=== PATIENT | female | born 1975 | race Caucasian/White ===

== ENCOUNTER 2018-03-14 16:04 | Emergency (ER) | payer OTHER ==
[2018-03-14 16:08] VITALS: BP 137/105; PULSE 78; RESP 16; TEMP 98.7; O2SAT 99
--- NOTE | 2018-03-14 17:01 | ED PDOC ---
HPI: Trauma/Fall - HPI Time Seen by Provider: 03/14/18 16:12 Chief Complaint (Nursing): Trauma Chief Complaint (Provider): Head Injury History Per: Patient History/Exam Limitations: no limitations Injury Occurred (Timing): Just Before Arrival Additional Complaint(s): 43 year old female presents to the ED via EMS for evaluation of head injury. Patient reports half of a broken brick fell approximately 15-20 feet from the side of a building in the [facility], striking her head just prior to arrival. Patient notes she did not lose consciousness, but sustained cuts to the top of her head. Her only current complaint is a global headache, described as pressure. Otherwise, denies fever, dizziness, chest pain, abdominal pain, extremity pain, changes in vision, nausea, vomiting, and anticoagulant use. Tetanus up to date PMD: Dr. Ackerman Past Medical History Reviewed: Historical Data, Nursing Documentation, Vital Signs Vital Signs: Last Vital Signs Temp 98.7 F 03/14/18 16:06 Pulse 78 03/14/18 16:06 Resp 16 03/14/18 16:06 BP 137/105 H 03/14/18 16:06 Pulse Ox 99 03/14/18 16:06 - Medical History Other PMH: ADHD - Surgical History Surgical History: (x2) - Family History Family History: States: Unknown Family Hx - Living Arrangements Living Arrangements: With Family - Social History Current smoker - smoking cessation education provided: No Alcohol: Social Drugs: Denies - Home Medications Home Medications: Ambulatory Orders Medication Instructions Recorded Acetaminophen [Acetaminophen 8 650 mg PO Q8 PRN #21 tablet.er 03/14/18 Hour] - Allergies Allergies/Adverse Reactions: Allergies Allergy/AdvReac Type Severity Reaction Status Date / Time No Known Allergies Allergy Verified 03/14/18 16:05 Review of Systems ROS Statement: Except As Marked, All Systems Reviewed And Found Negative Constitutional: Positive for: Other (head injury) Eyes: Negative for: Vision Change Gastrointestinal: Negative for: Nausea, Vomiting Neurological: Positive for: Headache. Negative for: Dizziness, Other (loss of consciousness) Physical Exam - Reviewed Nursing Documentation Reviewed: Yes Vital Signs Reviewed: Yes - Physical Exam Comments: GENERAL APPEARANCE: Patient is awake, alert, oriented x 3, in no acute distress. Resting comfortably. SKIN: Warm, dry; (-) cyanosis. HEAD: (+) left parietal scalp 3cm x 3cm hematoma with overlying superficial abrasions, (-) active bleeding, (+) tenderness, (+) faint ecchymosis, with no palpable bony defect. EYES: (-) conjunctival pallor, (-) scleral icterus, (-) nystagmus. ENMT: Mucous membranes moist. Nose: (-) tenderness. Pharynx clear. Airway patent: (-) stridor. Full ROM of mandible without pain. NECK: Supple, FROM (-) paracervical tenderness, (-) vertebral tenderness, (-) lymphadenopathy. CHEST AND RESPIRATORY: (-) rales, (-) rhonchi, (-) wheezes; breath sounds equal bilaterally. Respirations even and nonlabored. HEART AND CARDIOVASCULAR: (-) irregularity BACK: (-) midline tenderness. EXTREMITIES: (-) deformity NEURO AND PSYCH: GCS=15. Mental status as above. Has full memory of episode; clam sorter: Pupils equal & reactive . EOMI and painless. (-) facial asymmetry. Tongue and uvula midline. Strength 5/5 in all extremities. No gross sensory deficits. Gait: steady. Speech: clear. Cerebellar test intact. - Laboratory Results Urine POC: Negative - ECG O2 Sat by Pulse Oximetry: 99 (RA) Pulse Ox Interpretation: Normal Medical Decision Making Medical Decision Making: Initial Impression: closed head injury Time: 1644 Initial Plan: --CT Head without contrast --U-preg --Tylenol 650mg PO --Re-evaluation 1654 U-preg: negative 1810 CT radiology report follows FINDINGS: BRAIN No acute intraparenchymal hemorrhage. No mass lesion. No abnormal enhancement. No CT evidence for acute territorial infarct. No midline shift or extra-axial collections. VENTRICLES: No hydrocephalus. ORBITS: The orbits are unremarkable. SINUSES AND MASTOIDS: The paranasal sinuses and mastoid air cells are clear. BONES: No fracture. IMPRESSION: No acute intracranial abnormality. On re-evaluation, patient reports improvement of symptoms. On exam, patient remains AAOx3, in no acute distress. Lungs clear to auscultation, cardiac RRR, repeat neuro exam shows no focal findings. Vitals stable. Lab/Diagnostic results d/w the patient in great detail. Diagnosis of closed head injury, headache d/w the patient. Based on history, exam and diagnostic results, plan will be for outpatient follow up with PMD/neuro. Patient instructed to follow-up with pmd / referral provided / the clinic in 1- 2 days without fail. Advised to take medication as prescribed. Return to the emergency room at any time for any new or worsening symptoms. Patient states she fully agrees with and understands discharge instructions. States that she agrees with the plan and disposition. Verbalized and repeated discharge instructions and plan. I have given the patient opportunity to ask any additional questions. Scribe Attestation: Documented by Alysia Doss, acting as a scribe for Farnaz Mojica PA-C. Provider Scribe Attestation: All medical record entries made by the Scribe were at my direction and personally dictated by me. I have reviewed the chart and agree that the record accurately reflects my personal performance of the history, physical exam, medical decision making, and the department course for this patient. I have also personally directed, reviewed, and agree with the discharge instructions and disposition. Disposition - Clinical Impression Clinical Impression: Closed head injury, Headache - Patient ED Disposition Is Patient to be Admitted: No Counseled Patient/Family Regarding: Studies Performed, Diagnosis, Need For Followup, Rx Given - Disposition Referrals: primary, doctor [Other] Cali Busby MD [Medical Doctor] - Disposition: Routine/Home Disposition Time: 18:15 Condition: STABLE Additional Instructions: The emergency medical care you received today was directed at your acute symptoms. If you were prescribed any medication, please fill it and take as directed. It may take several days for your symptoms to resolve. Return to the Emergency Department if your symptoms worsen, do not improve, or if you have any other problems. Please contact your doctor in 2 days for re-evaluation and follow up / or call one of the physicians/clinics you have been referred to that are listed on the Patient Visit Information form that is included in your discharge packet. Bring any paperwork you were given at discharge with you along with any medications you are taking to your follow up visit. Our treatment cannot replace ongoing medical care by a primary care provider (PCP) outside of the emergency department. Prescriptions: Acetaminophen [Acetaminophen 8 Hour] 650 mg PO Q8 PRN #21 tablet.er PRN Reason: Pain, Moderate (4-7) Instructions: Concussion in Adults, Postconcussion Syndrome, Closed Head Injury (DC), Headache, Adult (DC) Forms: [employer] (Bangladeshi) Print Language: KYRGYZ - POA Present On Arrival: None
--- NOTE | 2018-03-15 10:00 | CT ---
Date of service: 03/14/2018 PROCEDURE: CT HEAD WITHOUT CONTRAST. HISTORY: headache, brick fell 15ft and struck patient COMPARISON: None available. TECHNIQUE: Axial computed tomography images were obtained through the head/brain without intravenous contrast. Radiation dose: Total exam DLP = 886.81 mGy-cm. This CT exam was performed using one or more of the following dose reduction techniques: Automated exposure control, adjustment of the mA and/or kV according to patient size, and/or use of iterative reconstruction technique. FINDINGS: HEMORRHAGE: No intracranial hemorrhage. BRAIN: No mass effect or edema. No atrophy or chronic microvascular ischemic changes. VENTRICLES: Unremarkable. No hydrocephalus. CALVARIUM: Unremarkable. There appears to be mild left-sided superior parietal scalp swelling. PARANASAL SINUSES: Unremarkable as visualized. No significant inflammatory changes. MASTOID AIR CELLS: Unremarkable as visualized. No inflammatory changes. OTHER FINDINGS: None. IMPRESSION: No acute intracranial hemorrhage. Mild superior parietal scalp swelling.
== END 2018-03-14 18:26 | disposition home or self-care (01) ==
LOC: H.ER 16:04
DX: S09.90XA Unspecified injury of head, initial encounter (principal); W20.1XXA Struck by object due to collapse of building, initial encounter; Y92.480 Sidewalk as the place of occurrence of the external cause